=== PATIENT | female | born 1960 | race Caucasian/White ===

== ENCOUNTER 2018-11-09 00:06 | Emergency (ER) | payer BC ==
[2018-11-09 00:38] VITALS: RESP 20
[2018-11-09] MEDS ORDERED: Tdap Vaccine 0.5 ml Vial (10-64 yrs) IM ONE ×2 (01:18→02:12)
--- NOTE | 2018-11-09 01:19 | C.PDOC ---
History Of Present Illness 58 year old female with a Hx of ETOH intoxication and HTN presents s/p mechanical fall while intoxicated witnessed by her . Patient fell over a fence and impacted her left forehead on the ground. She was able to ambulate after fall. Denies LOC, use of blood thinners, or pain to other areas. Patient does not remember her last tetanus vaccine. Chief Complaint (Nursing): Substance Abuse History Per: Patient History/Exam Limitations: no limitations Onset/Duration Of Symptoms: Hrs Current Symptoms Are (Timing): Still Present Modifying Factor(s): Alcohol Involuntary Hold By: None Recent travel outside of the [place]: No Past Medical History Reviewed: Historical Data, Nursing Documentation, Vital Signs Vital Signs: Last Vital Signs Temp 98.2 F 11/09/18 00:28 Pulse 78 11/09/18 00:28 Resp 20 11/09/18 00:28 BP 107/73 11/09/18 00:28 Pulse Ox 97 11/09/18 00:28 - Medical History PMH: HTN - [facility] LAPAROSCOPIC CHOLECYSTECTOMY (09/24/13) Family History: States: Unknown Family Hx - Social History Hx Tobacco Use: No Hx Alcohol Use: Yes (socially) Hx Substance Use: No - Immunization History Hx Tetanus Toxoid Vaccination: No Hx Influenza Vaccination: No Hx Pneumococcal Vaccination: No Review Of Systems Except As Marked, All Systems Reviewed And Found Negative. Physical Exam - Physical Exam Appears: Non-toxic Skin: Normal Color, Warm, Dry Head: Normacephalic, Laceration (3cm linear, good hemostasis), Other (ETOH on breath) Eye(s): bilateral: Normal Inspection Oral Mucosa: Moist Neck: Normal, No Midline Cervical Tenderness, No Paracervical Tenderness, Supple Chest: Symmetrical, No Tenderness Cardiovascular: Rhythm Regular Respiratory: Normal Breath Sounds, No Rales, No Rhonchi, No Wheezing Gastrointestinal/Abdominal: Soft, No Tenderness Back: No Vertebral Tenderness, No Paraspinal Tenderness Extremity: Normal ROM (x4) Neurological/Psych: Oriented x3, Normal Speech ED Course And Treatment - Laboratory Results Result Diagrams: 11/09/18 02:15 11/09/18 02:15 O2 Sat by Pulse Oximetry: 97 (Room air) Pulse Ox Interpretation: Normal Laceration - Laceration Repair No standard instances Wound Length (In cm): 3 Description Of Wound: Linear, Clean Wound Cleansed With: Betadine, Sterile Saline Anesthesia: Lidocaine 1%, With Epi Wound Examination: Irrigated With Saline, No FB With Wound Exploration Wound Closure: Suture Suture Technique And Material Used: Interrupted Wound Complexity: Simple (7) Medical Decision Making Medical Decision Making: Impression: ETOH intoxication with head laceration. CT cervical spine, CT head, and blood work ordered. Tetanus vaccine administered. [address] negative [address] c spine negative lac to be sutured pt in nad 0320 lac repaired stable gait, in NAD, clincally sober clear for d/c home given return indications and followup Disposition - Disposition Referrals: [facility] [Outside] [facility] [Outside] [facility] [Outside] [facility] [Outside] Disposition Time: 03:23 Condition: GOOD Additional Instructions: HAVE SUTURES REMOVED in 5 days. RETURN HERE OR SEE YOUR PRIMARY CARE DOCTOR FOR REMOVAL. IF ANY SIGNS OF INFECITON RETURN RAMILA POTTS, thank you for letting us take care of you today. Your provider was Hector Greer and you were treated for SUBSTANE ABUSE. The emergency medical care you received today was directed at your acute symptoms. If you were prescribed any medication, please fill it and take as directed. It may take several days fo r your symptoms to resolve. Return to the Emergency Department if your symptoms worsen, do not improve, or if you have any other problems. Please contact your doctor or call one of the physicians/clinics you have been referred to that are listed on the Patient Visit Information form that is included in your discharge packet. Bring any paperwork you were given at discharge with you along with any medications you are taking to your follow up visit. Our treatment cannot replace ongoing medical care by a primary care provider outside of the emergency department. [facility] your care today. If you had an X-Ray or CT scan: A Radiologist will review the ED reading if any change in treatment is needed we will contact you. If you had a blood, urine, or wound culture: It will take several days for the results, if any change in treatment is needed we will contact you. If you had an STI test: It will take 48 hours for the results. Please call after 1 week if you have not heard back. Prescriptions: Cephalexin Susp [Keflex] 250 mg PO Q6H 3 Days #12 ml Instructions: Minor Head Injury, Laceration Repair With Stitches (DC), Alcohol Use - When Is Drinking a Problem? Forms: [facility] (Gabonese), [facility] (Latvian) Print Language: MACEDONIAN - Clinical Impression Clinical Impression: Laceration, Head trauma, Alcohol intoxication - Scribe Statement The provider has reviewed the documentation as recorded by the Scribgamaliel Massey All medical record entries made by the Scribe were at my direction and personally dictated by me. I have reviewed the chart and agree that the record accurately reflects my personal performance of the history, physical exam, medical decision making, and the department course for this patient. I have also personally directed, reviewed, and agree with the discharge instructions and disposition.
[2018-11-09 02:21] LABS: BASO % 0.7 % (0.0-2.0); EOS # 0.1 K/uL (0.0-0.7); EOS % 1.1 % (0.0-4.0); HEMOGLOBIN 14.1 g/dL (11.0-16.0); LYMPH # 2.1 K/uL (1.0-4.3); LYMPH % 31.4 % (20.0-40.0); MEAN CELL VOLUME 99.6 fL (81.0-99.0); MEAN CORPUSCULAR HEMOGLOBIN 32.7 pg (27.0-31.0); MEAN CORPUSCULAR HGB CONC 32.9 g/dL (33.0-37.0); MEAN PLATELET VOLUME 8.4 fL (7.2-11.7); MONO # 0.4 K/uL (0.0-0.8); MONO % 6.6 % (0.0-10.0); NEUT % 60.2 % (50.0-75.0); NRBC % 0.1 % (0.0-2.0); RBC 4.31 Mil/uL (3.80-5.20); RED CELL DISTRIBUTION WIDTH 14.2 % (11.5-14.5); WHITE BLOOD COUNT 6.6 K/uL (4.8-10.8)
[2018-11-09] MEDS ORDERED: Lidocaine 2% w Epi 1:100,000 Inj IJ STA (02:23)
[2018-11-09 02:27] LABS: PROTHROMBIN TIME 11.1 SECONDS (9.7-12.2)
[2018-11-09 02:35] LABS: ALB/GLOB RATIO 1.4 (1.0-2.1); ALBUMIN 4.6 g/dL (3.5-5.0); ALT/SGPT 43 U/L (9-52); AST/SGOT 55 U/L (14-36); BLOOD UREA NITROGEN 8 mg/dL (7-17); CALCIUM 8.6 mg/dl (8.6-10.4); GFR NON-AFRICAN AMERICAN > 60
[2018-11-09] MEDS ORDERED: Lidocaine 1%/Epinephrine 1:100000 30 ml vial IJ STA (02:35)
[2018-11-09 03:23] VITALS: O2SAT 97
[2018-11-09 03:51] VITALS: BP 117/80; PULSE 100; TEMP 98.4
--- NOTE | 2018-11-09 08:00 | CT ---
Date of service: 11/09/2018 PROCEDURE: CT HEAD WITHOUT CONTRAST. HISTORY: fall, head lac COMPARISON: None available. TECHNIQUE: Axial computed tomography images were obtained through the head/brain without intravenous contrast. Radiation dose: Total exam DLP = 1235.41 mGy-cm. This CT exam was performed using one or more of the following dose reduction techniques: Automated exposure control, adjustment of the mA and/or kV according to patient size, and/or use of iterative reconstruction technique. FINDINGS: HEMORRHAGE: No intracranial hemorrhage. BRAIN: No mass effect or edema. No atrophy or chronic microvascular ischemic changes. Mild bifrontal extra-axial prominence. VENTRICLES: Unremarkable. No hydrocephalus. CALVARIUM: Unremarkable. PARANASAL SINUSES: Mild mucosal thickening of the right maxillary sinus. MASTOID AIR CELLS: Unremarkable as visualized. No inflammatory changes. OTHER FINDINGS: None. IMPRESSION: No acute intracranial abnormality. If symptoms persists, consider correlation with MRI. A preliminary report was generated at 2:03 a.m. on 11/09/[address] Elvis Landa from [employer].
--- NOTE | 2018-11-09 11:05 | CT ---
CT cervical spine HISTORY: Fall. COMPARISON: None available. TECHNIQUE: Multiple contiguous axial images were performed through the cervical spine without the use of intravenous contrast. Subsequently, sagittal and coronal reformatted images were obtained. This CT exam was performed using one or more of the following dose reduction techniques: Automated exposure control, adjustment of the mA and/or kV according to patient size, and/or use of iterative reconstruction technique. Findings: Study somewhat limited as the patient is rotated in the scanner. 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 Narrowing at the atlantodental interval with sclerosis. Posterior disc osteophyte complexes at the C5-6 and C6-7 levels. Mild anterior osteophytosis at the C4 through C7 levels. Mild multilevel uncovertebral joint and facet hypertrophy. No significant prevertebral soft tissue swelling. Mild mucosal thickening of the right maxillary sinus. Heterogeneity of the thyroid. Prominence of the ascending aorta measuring up to 3.3 centimeters. Tracheal deviation to the right. 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 Degenerative changes. If pain persists, consider correlation with MRI. A preliminary report was generated at 2:04 a.m. on 11/09/[address] Elvis Landa from [employer].
== END 2018-11-09 03:49 | disposition home or self-care (01) ==
LOC: C.ER 00:06
DX: S01.81XA Laceration without foreign body of other part of head, initial encounter (principal); W18.39XA Other fall on same level, initial encounter; F10.129 Alcohol abuse with intoxication, unspecified; I10 Essential (primary) hypertension; Z23 Encounter for immunization